=== PATIENT | male | born 1985 | race Caucasian/White ===

== ENCOUNTER 2019-10-20 19:19 | Emergency (ER) | payer OTHER ==
[2019-10-20] MEDS ORDERED: DIPH/PERTUSS(ACELL)/TETANUS VAC/PF 0.5 ML SYR (>=10YO) IM ONE (19:40)
--- NOTE | 2019-10-20 19:42 | ER Document Report ---
ED Medical Screen (RME) - General Chief Complaint: Dog Bite Stated Complaint: DOG BITE TO RIGHT ANKLE Time Seen by Provider: 10/20/19 19:38 Mode of Arrival: Ambulatory Information source: Patient Notes: 34-year-old male presents emergency department with laceration dog bite to his right lateral ankle. Reports he was breaking up a fight between his dogs and dog bit him. He reports dogs vaccines are up-to-date. He does not remember when his last tetanus was. Approximate linear 3 cm laceration noted to right ankle, no active bleeding. I have greeted and performed a rapid initial assessment of this patient. A comprehensive ED assessment and evaluation of the patient, analysis of test results and completion of the medical decision making process will be conducted by additional ED providers. - Related Data Allergies/Adverse Reactions: No Known Allergies Allergy (Unverified 10/20/19 19:27) Physical Exam - Vital signs Vitals: Temp Pulse Resp BP Pulse Ox 98.5 F 89 16 144/89 H 100 10/20/19 19:24 10/20/19 19:24 10/20/19 19:24 10/20/19 19:24 10/20/19 19:24 Course - Vital Signs Vital signs: Temp Pulse Resp BP Pulse Ox 98.5 F 89 16 144/89 H 100 10/20/19 19:24 10/20/19 19:24 10/20/19 19:24 10/20/19 19:24 10/20/19 19:24
[2019-10-20] MEDS ORDERED: LIDOCAINE 1% INJ-PF (10 MG/ML) 30 ML SDV INJ ONE (20:26)
--- NOTE | 2019-10-20 20:40 | RADIOLOGY REPORT (SQ) ---
EXAM DESCRIPTION: XR ANKLE 3 OR MORE VIEWS COMPLETED DATE/TME: 10/20/2019 19:39 CLINICAL HISTORY: 34 years, Male, DOG BITE COMPARISON: None. NUMBER OF VIEWS: TECHNIQUE: LIMITATIONS: None. FINDINGS: 3 views of the right ankle were obtained. There is soft tissue swelling, predominantly anteriorly. There is some air within the anterior and lateral soft tissues, secondary to the dog bite. No evidence of radiopaque foreign body within the soft tissues. No fracture. IMPRESSION: No fracture or radiopaque foreign body. copyright 2010 [employer]- All Rights Reserved
--- NOTE | 2019-10-20 20:58 | ER Document Report ---
ED General - General Chief Complaint: Dog Bite Stated Complaint: DOG BITE TO RIGHT ANKLE Time Seen by Provider: 10/20/19 19:38 Primary Care Provider: [facility] [Primary [facility] Provider] - Follow up as needed Mode of Arrival: Ambulatory TRAVEL OUTSIDE OF THE [place] IN LAST 30 DAYS: No - HPI Context: Patient was his dogs when 1 of his dogs bit him resulting in a puncture wound on the top aspect of his right foot as well as approximately 5 cm linear laceration with small flap lateral aspect of posterior lateral right foot. No other injuries he states that his dog's rabies vaccinations are up-to-date - Related Data Allergies/Adverse Reactions: No Known Allergies Allergy (Unverified 10/20/19 19:27) Home Medications: Methocarbomol. Zoloft. Prazosin. Ibuprofen Past Medical History - General Information source: Patient - Social History Smoking Status: Never Smoker Chew tobacco use (# tins/day): No Frequency of alcohol use: Occasional Drug Abuse: None Family History: Reviewed & Not Pertinent Patient has suicidal ideation: No Patient has homicidal ideation: No Past Surgical History: Reports: Hx Abdominal Surgery - lt inguinal, Hx Orthopedic Surgery - rt shoulder ligament repair Review of Systems - Review of Systems Constitutional: No symptoms reported EENT: No symptoms reported Cardiovascular: No symptoms reported Respiratory: No symptoms reported Gastrointestinal: No symptoms reported Genitourinary: No symptoms reported Male Genitourinary: No symptoms reported Musculoskeletal: No symptoms reported Skin: No symptoms reported, See HPI Hematologic/Lymphatic: No symptoms reported Neurological/Psychological: No symptoms reported Physical Exam - Vital signs Vitals: Temp Pulse Resp BP Pulse Ox 98.5 F 89 16 144/89 H 100 10/20/19 19:24 10/20/19 19:24 10/20/19 19:24 10/20/19 19:24 10/20/19 19:24 - General General appearance: Appears well, Alert - Respiratory Respiratory status: No respiratory distress - Extremities General lower extremity: Other - Approximately 5 to 6 cm linear laceration lateral aspect of right foot located most posteriorly on foot. Also a small puncture wound on top of foot near ankle. - Neurological Cognition: Normal Orientation: AAOx4 - Normal gait Course - Re-evaluation Re-evalutation: 10/20/19 21:[address] patient on amoxicillin. Return precautions provided. 10/20/19 21:14 Tetanus shot provided in triage - Vital Signs Vital signs: Temp Pulse Resp BP Pulse Ox 98.9 F 80 20 140/86 H 99 10/20/19 21:25 10/20/19 21:25 10/20/19 21:25 10/20/19 21:25 10/20/19 21:25 Procedures - Laceration/Wound Repair Right Foot Wound length (cm): 5 Wound's Depth, Shape: Linear, Other - Small skin flap at edge of laceration Laceration pre-procedure: Betadine prep applied, Other - Had patient place his foot under tap water and wound was thoroughly irrigated in explored with my finger no foreign bodies Wound explored: No foreign body removed Wound Repaired With: Sutures Suture Size/Type: 3:0, Prolene Number of Sutures: 5 Layer Closure?: No Post-procedure NV exam normal: Yes Discharge - Discharge Clinical Impression: Laceration Dog bite Qualifiers: Encounter type: initial encounter Qualified Code(s): W54.0XXA - Bitten by dog, initial encounter Condition: Good Disposition: HOME, SELF-CARE Instructions: Laceration Care ([facility]), Prophylactic Antibiotic ([facility]) Prescriptions: Amox Tr/Potassium Clavulanate [Augmentin 875-125 Tablet] 1 tab PO BID 10 Days tablet Referrals: [facility] [Primary Care Provider] - Follow up as needed
[2019-10-20] MEDS ORDERED: AMOXICILLIN TR/POT CLAVULANATE 500-125 MG TAB PO ONE (21:16)
[2019-10-20 21:27] VITALS: BP 140/86
== END 2019-10-20 21:26 | disposition home or self-care (01) ==
LOC: ER 19:19
PROC: 0HQMXZZ Repair Right Foot Skin, External Approach (ICD-10-PCS; principal; 2019-10-20)
DX: S91.031A Puncture wound without foreign body, right ankle, initial encounter (principal); W54.0XXA Bitten by dog, initial encounter; S91.311A Laceration without foreign body, right foot, initial encounter
CPT/HCPCS: 99283; 90471; 73610; 90715; 12002; J3490